=== PATIENT | female | born 1990 | race Caucasian/White ===

== ENCOUNTER 2018-03-19 00:58 | Emergency (ER) | payer BC, OTHER, SELFPAY ==
[2018-03-19] MEDS ORDERED: NA CHLORIDE 0.9% 1,000 ML ONE (02:09)
[2018-03-19] MEDS ORDERED: ACETAMINOPHEN 325 MG TABLET ONE (02:09)
[2018-03-19 02:26] LABS: Absolute Lymphocytes (CBC) 2.1 K/uL (0.7-4.9); Absolute Monocytes 0.5 K/uL (0.1-1.3); Absolute Neutrophil 6.2 K/uL (1.8-8.0); Basophils % 0.2 % (0-1.3); Hematocrit 40.6 % (36.0-45.0); Lymphocytes % 23.5 % (15.3-44.8); MCH 29.4 pg (27.0-35.0); MCV 84.6 fL (80-100); MPV 9.1 fL (7.6-11.3); Monocytes % 5.9 % (3.3-12.3)
[2018-03-19 03:12] LABS: Potassium 3.7 mmol/L (3.5-5.1)
[2018-03-19 03:14] LABS: Urine Bacteria <20 /HPF (<20); Urine Culture Reflex Order NOT NEEDED; Urine Mucus 1+ /HPF (NONE SEEN); Urine RBC <5 /HPF (NONE SEEN)
--- NOTE | 2018-03-19 03:28 | ER ---
Nurse's Notes [facility] Name: Lo Bruce Age: 27 yrs Sex: Female : 1990 Arrival Date: 03/19/2018 Time: 01:01 Bed 20 Private MD: Diagnosis: Lower abdominal pain, unspecified; related conditions, unspecified, first trimester Presentation: 03/19 01:12 Presenting complaint: Patient states: About 30 minutes ago I began having severe jb4 abdominal pains below my belly button, that have been making it hard to stand. Transition of care: patient was not received from another setting of care. Onset of symptoms was March 19, 2018 at 00:40. Risk Assessment: Do you want to hurt yourself or someone else? Patient reports no desire to harm self or others. Initial Sepsis Screen: Does the patient meet any 2 criteria? No. Patient's initial sepsis screen is negative. Does the patient have a suspected source of infection? No. Patient's initial sepsis screen is negative. Care prior to arrival: None. 01:12 Method Of Arrival: Ambulatory jb4 01:12 Acuity: TABITHA 3 jb4 Triage Assessment: 01:18 General: Appears in no apparent distress. uncomfortable, Behavior is calm, cooperative, jb4 appropriate for age. Pain: Complains of pain in right lower quadrant and left lower quadrant Pain radiates to right leg Pain currently is 6 out of 10 on a pain scale. at worst was 10 out of 10 on a pain scale. Quality of pain is described as burning, crampy, Pain began 30 min ago. Is intermittent, Alleviated by repositioning. EENT: No signs and/or symptoms were reported regarding the EENT system. Neuro: Level of Consciousness is awake, alert, obeys commands, Oriented to person, place, time, situation. Cardiovascular: Patient's skin is warm and dry. Respiratory: Airway is patent Respiratory effort is even, unlabored, Respiratory pattern is regular, symmetrical. GI: Abdomen is flat, non-distended, Bowel sounds present X 4 quads. Abd is soft and non tender X 4 quads. Reports nausea. : No signs and/or symptoms were reported regarding the genitourinary system. Derm: Skin is intact, Skin is pink, warm \T\ dry. Musculoskeletal: Circulation, motion, and sensation intact. 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 jb4 Historical: - Allergies: 01:18 Latex, Natural Rubber; jb4 - Home Meds: 01:18 Minivelle transdermal transdermal [Active]; Progesterone in Oil intramuscular jb4 intramuscular [Active]; Estradiol Oral [Active]; - PMHx: 01:18 None; jb4 - PSHx: 01:18 Knee surgery; Tonsillectomy; meloenoma removal; wisdom teeth removal; jb4 - Immunization history:: Adult Immunizations up to date, Flu vaccine is not up to date. - Social history:: Smoking status: Patient/guardian denies using tobacco. - Ebola Screening: : No symptoms or risks identified at this time. Screenin:12 Abuse screen: Denies threats or abuse. Nutritional screening: No deficits noted. jb4 Tuberculosis screening: No symptoms or risk factors identified. Fall Risk None identified. Assessment: 01:12 General: see triage assessment.. jb4 02:27 Reassessment: Patient appears in no apparent distress at this time. Patient and/or jb4 family updated on plan of care and expected duration. Pain level reassessed. Patient is alert, oriented x 3, equal unlabored respirations, skin warm/dry/pink. guest at the bedside. 03:44 Reassessment: Patient appears in no apparent distress at this time. Patient and/or jb4 family updated on plan of care and expected duration. Pain level reassessed. Patient is alert, oriented x 3, equal unlabored respirations, skin warm/dry/pink. Discussed D/c, F/u with pt, denies question or concerns. Vital Signs: 01:12 BP 137 / 98; Pulse 63; Resp 16; Temp 98.1(O); Pulse Ox 100% on R/A; Weight 68.04 kg; jb4 Height 5 ft. 4 in. (162.56 cm); Pain 7/10; 02:27 BP 131 / 84; Pulse 73; Resp 16; Pulse Ox 100% on R/A; jb4 03:44 BP 129 / 63; Pulse 78; Resp 18; Pulse Ox 98% on R/A; jb4 01:12 Body Mass Index 25.75 (68.04 kg, 162.56 cm) 4 ED Course: 01:01 Patient arrived in ED. es 01:10 Initial lab(s) drawn, by me, sent to lab. Urine collected: clean catch specimen, clear. jb4 Inserted saline lock: 20 gauge in right antecubital area, using aseptic technique. Blood collected. 01:12 Justice Hernandez, RN is Primary Nurse. jb4 01:12 Arm band placed on right wrist. jb4 01:12 Patient has correct armband on for positive identification. Placed in gown. Bed in low jb4 position. Call light in reach. Side rails up X 1. Pulse ox on. NIBP on. 01:15 Triage completed. jb4 01:23 Raul Brenner PA is PHCP. cp 01:23 Raul Garcia MD is Attending Physician. cp 03:24 Ultrasound completed. Patient tolerated well. aa4 03:26 US Transvaginal Ob In Process Unspecified. EDMS 03:44 No provider procedures requiring assistance completed. IV discontinued, intact, No jb4 redness/swelling at site. Administered Medications: 02:08 Drug: Tylenol 650 mg Route: PO; jb4 03:05 Follow up: Response: No adverse reaction; Pain is decreased jb4 02:09 Drug: NS 0.9% 1000 ml Route: IV; Rate: 1 bolus; Site: right antecubital; jb4 03:05 Follow up: Response: No adverse reaction; IV Status: Completed infusion jb4 Outcome: 03:28 Discharge ordered by . cp 03:48 Discharged to home ambulatory. jb4 03:48 Condition: stable 03:48 Discharge instructions given to patient, family, Instructed on discharge instructions, follow up and referral plans. medication usage, Demonstrated understanding of instructions, follow-up care, medications, Prescriptions given X 1. 03:49 Patient left the ED. jb4 Signatures: Dispatcher [employer] EDMirtha Lucero Amanda aa4 Raul Brenner PA PA cp Justice Hernandez, RN RN jb4
--- NOTE | 2018-03-19 03:29 | EDPHYS ---
Physician Documentation [facility] Name: Lo Bruce Age: 27 yrs Sex: Female : 1990 Arrival Date: 03/19/2018 Time: 01:01 Bed 20 Private MD: ED Physician Raul Garcia HPI: 03/19 01:33 This 27 yrs old Female presents to ER via Ambulatory with complaints of cp Abdominal Pain, 6 weeks preg. 01:33 The patient presents with abdominal pain in the lower abdomen, right worse than left. cp Onset: The symptoms/episode began/occurred suddenly, awoke patient from sleep tonight. The symptoms do not radiate. 01:33 Associated signs and symptoms: Pertinent negatives: blood in stools, constipation, cp diarrhea, dysuria, fever, vaginal discharge, vaginal bleeding. 01:33 Severity of pain: in the emergency department the pain has improved moderately. 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 jb4 Historical: - Allergies: 01:18 Latex, Natural Rubber; jb4 - Home Meds: 01:18 Minivelle transdermal transdermal [Active]; Progesterone in Oil intramuscular jb4 intramuscular [Active]; Estradiol Oral [Active]; - PMHx: 01:18 None; jb4 - PSHx: 01:18 Knee surgery; Tonsillectomy; meloenoma removal; wisdom teeth removal; jb4 - Immunization history:: Adult Immunizations up to date, Flu vaccine is not up to date. - Social history:: Smoking status: Patient/guardian denies using tobacco. - Ebola Screening: : No symptoms or risks identified at this time. ROS: 01:35 Constitutional: Negative for body aches, chills, fever, poor PO intake. cp 01:35 Eyes: Negative for injury, pain, redness, and discharge. cp 01:35 ENT: Negative for drainage from ear(s), ear pain, sore throat, difficulty swallowing, difficulty handling secretions. 01:35 Cardiovascular: Negative for chest pain, edema, palpitations. 01:35 Respiratory: Negative for cough, shortness of breath, wheezing. 01:35 Abdomen/GI: Positive for abdominal pain, of the right lower quadrant and left lower quadrant, Negative for vomiting, diarrhea, constipation, anorexia, black/tarry stool, rectal bleeding. 01:35 : Negative for urinary symptoms, flank pain, vaginal bleeding, vaginal discharge. 01:35 Skin: Negative for cellulitis, rash. 01:35 Neuro: Negative for altered mental status, headache, weakness. 01:35 All other systems are negative. Exam: 01:40 Constitutional: The patient appears in no acute distress, alert, awake, non-toxic, well cp developed, well nourished. 01:40 Head/Face: Normocephalic, atraumatic. cp 01:40 Eyes: Periorbital structures: appear normal, Conjunctiva: normal, no exudate, no injection, Sclera: no appreciated abnormality, Lids and lashes: appear normal, bilaterally. 01:40 ENT: External ear(s): are unremarkable, Nose: is normal, Posterior pharynx: is normal, airway is patent, no erythema, no exudate. 01:40 Chest/axilla: Inspection: normal, Palpation: is normal, no crepitus, no tenderness. 01:40 Cardiovascular: Rate: normal, Rhythm: regular. 01:40 Respiratory: the patient does not display signs of respiratory distress, Respirations: normal, no use of accessory muscles, no retractions, no splinting, no tachypnea, labored breathing, is not present, Breath sounds: are clear throughout, no decreased breath sounds, no stridor, no wheezing. 01:40 Abdomen/GI: Inspection: abdomen appears normal, Bowel sounds: active, all quadrants, Palpation: soft, in all quadrants, mild abdominal tenderness, in the right lower quadrant and left lower quadrant, rebound tenderness, is not appreciated, voluntary guarding, is not appreciated, involuntary guarding, is not appreciated. 01:40 Back: pain, is absent, ROM is normal. 01:40 Skin: cellulitis, is not appreciated, no rash present. Vital Signs: 01:12 BP 137 / 98; Pulse 63; Resp 16; Temp 98.1(O); Pulse Ox 100% on R/A; Weight 68.04 kg; jb4 Height 5 ft. 4 in. (162.56 cm); Pain 7/10; 02:27 BP 131 / 84; Pulse 73; Resp 16; Pulse Ox 100% on R/A; jb4 03:44 BP 129 / 63; Pulse 78; Resp 18; Pulse Ox 98% on R/A; jb4 01:12 Body Mass Index 25.75 (68.04 kg, 162.56 cm) jb4 MDM: 01:24 Patient medically screened. [facility] 02:00 Differential diagnosis: cholecystitis, Cholelithiasis, Ectopic , Ovarian cp Torsion, Pyelonephritis, Ureterolithiasis, urinary tract infection. 03:23 Data reviewed: vital signs, nurses notes, lab test result(s), US tech reports single cp IUP with EGA of 6 weeks. 03:27 Counseling: I had a detailed discussion with the patient and/or guardian regarding: the cp historical points, exam findings, and any diagnostic results supporting the discharge/admit diagnosis, lab results, radiology results, the need for outpatient follow up, an OB/Gyne specialist, to return to the emergency department if symptoms worsen or persist or if there are any questions or concerns that arise at home. 03:27 Response to treatment: the patient's symptoms have markedly improved after treatment, cp and as a result, I will discharge patient. Special discussion: Based on the patient's Hx, exam, and Dx evaluation, there is no indication for emergent surgery or inpatient Tx. It is understood by the patient/guardian that if the Sx's persist or worsen they need to return immediately for re-evaluation. 03/19 01:35 Order name: Quantitative Hcg; Complete Time: 03:15 03/19 03:15 Interpretation: Reviewed. 03/19 01:35 Order name: Abo/rh Typing; Complete Time: 03:07 03/19 03:07 Interpretation: Reviewed. 03/19 01:35 Order name: Basic Metabolic Panel; Complete Time: 03:15 03/19 03:23 Interpretation: Normal except: GFR 85. 03/19 01:35 Order name: CBC with Diff; Complete Time: 02:43 03/19 02:43 Interpretation: Normal except: RDW 11.8. 03/19 01:35 Order name: Urine Microscopic Only; Complete Time: 03:15 03/19 02:03 Order name: Urine Dipstick--Ancillary (enter results) mw2 03/19 01:35 Order name: Urine Test (obtain specimen); Complete Time: 02:08 03/19 01:35 Order name: IV Saline Lock; Complete Time: 02:08 03/19 01:35 Order name: Labs collected and sent; Complete Time: 02:08 03/19 01:35 Order name: NPO; Complete Time: 01:38 cp 03/19 01:35 Order name: US Transvaginal Ob cp 03/19 02:03 Order name: Urine --Ancillary (enter results) mw2 03/19 01:35 Order name: Urine Dipstick-Ancillary (obtain specimen); Complete Time: 02:08 cp Administered Medications: 02:08 Drug: Tylenol 650 mg Route: PO; jb4 03:05 Follow up: Response: No adverse reaction; Pain is decreased jb4 02:09 Drug: NS 0.9% 1000 ml Route: IV; Rate: 1 bolus; Site: right antecubital; jb4 03:05 Follow up: Response: No adverse reaction; IV Status: Completed infusion jb4 Disposition: 06:44 Co-signature as Attending Physician, Raul Garcia MD I agree with the assessment and [facility] plan of care. Disposition: 03/19/18 03:28 Discharged to Home. Impression: Lower abdominal pain, unspecified, related conditions, unspecified, first trimester. - Condition is Stable. - Discharge Instructions: Abdominal Pain During , First Trimester of . - Prescriptions for Vitamin 27- 0.8 mg Oral Tablet - take 1 tablet by ORAL route once daily; 60 tablet. - Medication Reconciliation Form, Thank You Letter, Antibiotic Education, Prescription Opioid Use form. - Follow up: Private Physician; When: private SERVICE DESK MANAGER; Reason: Recheck today's complaints. - Problem is new. - Symptoms have improved. Signatures: Dispatcher [employer] [facility] Raul Garcia MD MD cha Page, Corey, PA PA Justice Rangel RN RN jb4 Corrections: (The following items were deleted from the chart) 03:49 03:28 03/19/2018 03:28 Discharged to Home. Impression: Lower abdominal pain, jb4 unspecified; related conditions, unspecified, first trimester. Condition is Stable. Forms are Medication Reconciliation Form, Thank You Letter, Antibiotic Education, Prescription Opioid Use. Follow up: Private Physician; When: private SERVICE DESK MANAGER; Reason: Recheck today's complaints. Problem is new. Symptoms have improved. cp
[2018-03-19 03:35] LABS: Urine Blood NEGATIVE (NEG); Urine Glucose NEGATIVE (NEG); Urine Protein NEGATIVE (NEG); Urine Specific Gravity >1.030 (1.005-1.030); Urine pH 5.5 (5.0-7.0)
--- NOTE | 2018-03-19 09:01 | RAD REPORT ---
EXAM DESCRIPTION: US - Transvaginal OB - 03/19/2018 3:26 am CLINICAL HISTORY: with abdominal pain COMPARISON: None. FINDINGS: The uterus measures 9 x 4 x 5 centimeters. A gestational sac is present within the endome trium. Within this is a yolk sac and pole with a crown-rump length 0.6 centimeters. Cardiac act ivity 105 beats per minute The ovaries are normal in size and echotexture. No significant free fluid is seen. IMPRESSION: Single live intrauterine with an estimated gestational age 6 weeks 3 days [employer] 11/09/2018
== END 2018-03-19 03:49 | disposition home or self-care (01) ==
LOC: ER 00:58
DX: R10.30 Lower abdominal pain, unspecified (principal); Z91.040 Latex allergy status; Z91.048 Other nonmedicinal substance allergy status
CPT/HCPCS: 36415; 76817; 80048; 81003; 81015; 81025; 84702; 85025; 86900; 86901; 96360; 99284; J7030